=== PATIENT | female | born 1960 | race African-American/Black ===

== ENCOUNTER 2016-04-30 16:13 | Emergency (ER) | payer OTHER ==
[2016-04-30 16:24] VITALS: BMI 27.4
--- NOTE | 2016-04-30 17:28 | PDOC ---
History of Present Illness <Jacobo Rodríguez - Last Filed: 04/30/16 20:54> - History of Present Illness Initial Comments: 04/30/16 17:57 Patient is a 55 year old female with significant medical hx of diabetes and diverticulitis who is presenting to the ED with constant, progressive posterior left lower extremity pain and swelling for two weeks. The patient complains of posterior left leg pain with radiation from her left calf up to her left buttock and over to her right buttock. The patients pain alleviates with elevation of the leg and worsens when sitting and standing. Patient denies shortness of breath, chest pain, recent trauma, urinary or bowel incontinence, hx of blood clot, DVT or cancer. <Stacy Ling - Last Filed: 04/30/16 21:13> - General Chief Complaint: Edema Stated Complaint: PCP SENT/[facility] Time Seen by Provider: 04/30/16 17:28 Past History - Past Medical History Diabetes: Yes GI Disorders: Yes (diverticulitis) HTN: Yes Suicide Attempt (Hx): No - Surgical History Orthopedic Surgery: No - Immunization History Immunization Up to Date: Yes (NO FLU) - Psycho/Social/Smoking Cessation Hx Anxiety: No Suicidal Ideation: No Smoking History: Former smoker Have you smoked in the past 12 months: No Number of Cigarettes Smoked Daily: 0 Information on smoking cessation initiated: No Hx Alcohol Use: No Drug/Substance Use Hx: No <Jacobo Rodríguez - Last Filed: 04/30/16 20:54> <Stacy Ling - Last Filed: 04/30/16 21:13> - Past Medical History Allergies/Adverse Reactions: Allergies Allergy/AdvReac Type Severity Reaction Status Date / Time No Known Allergies Allergy Verified 04/30/16 16:21 Home Medications: Ambulatory Orders Calcium Carbonate/Vitamin D3 [Calcium 600+D Softgel] 1 each PO BID 03/27/14 Cyanocobalamin [Vitamin B12 -] 1,000 mcg PO DAILY 03/27/14 Ergocalciferol (Vitamin D2) [Vitamin D2] 2,000 unit PO DAILY 03/27/14 Lipase/Protease/Amylase [Creon Dr 36,000 Units Capsule] 1 each PO AC 03/27/14 Metformin HCl [Glucophage] 500 mg PO DAILY 03/27/14 Cyclobenzaprine HCl [Flexeril -] 10 mg PO TID PRN 06/13/16 Review of Systems - Review of Systems Comments:: 04/30/16 17:57 CONSTITUTIONAL: No fever, no chills, no fatigue EYES: No visual changes ENT: No ear pain, no sore throat CARDIOVASCULAR: No chest pain, no palpitations RESPIRATORY: No cough, no SOB GI: No abdominal pain, no nausea, no vomiting, no constipation, no diarrhea GENITOURINARY: No dysuria, no frequency, no hematuria MUSKULOSKELETAL: Left lower extremity pain and swelling. No backpain, no joint pain SKIN: No rash NEURO: No headache <Stacy Ling - Last Filed: 04/30/16 21:13> *Physical Exam - Vital Signs Last Vital Signs Temp Pulse Resp BP Pulse Ox 98.2 F 84 20 154/107 97 04/30/16 16:21 04/30/16 16:21 04/30/16 16:21 04/30/16 16:21 04/30/16 16:21 - Physical Exam Comments: EXTR: No obvious deformity; both lower extremities are warm to touch; minimal pitting edema to the left pretibial area is noted; full range of motion at the left hip/knee/ankle with minimal buttock discomfort on hip hyperextension; there is no compartment tenderness to palpation; dorsalis pedis and tibialis posterior +2 bilaterally; varicosities are noted bilaterally. <Jacobo Rodríguez - Last Filed: 04/30/16 20:54> - Vital Signs Last Vital Signs Temp Pulse Resp BP Pulse Ox 98.2 F 84 20 154/107 97 04/30/16 16:21 04/30/16 16:21 04/30/16 16:21 04/30/16 16:21 04/30/16 16:21 - Physical Exam Comments: 04/30/16 19:02 CONSTITUTIONAL: Well-appearing; well-nourished; in no apparent distress HEAD: Normocephalic; atraumatic EYES: PERRL; EOM intact ENMT: External appears normal; normal oropharynx NECK: Supple; non-tender; no cervical lymphadenopathy CARD: Normal S1, S2; no murmurs, rubs, or gallops RESP: Normal chest excursion with respiration; breath sounds clear and equal bilaterally; no wheezes, rhonchi, or rales ABD: Soft, non-distended; non-tender; no palpable organomegaly, no palpable hernias EXT: Normal ROM in all four extremities; non-tender to palpation; distal pulses intact SKIN: Warm, dry, no rash NEURO: No focal neurological deficiencies. <Stacy Ling - Last Filed: 04/30/16 21:13> ED Treatment Course - RADIOLOGY Radiograph Interpretation: 04/30/16 20:28 Hip/Pelvis X-Ray Impression: Unremarkable examination. Correlate clinically for further evaluation. Reported By: Alyssa Harris MD 04/30/16 21:12 Vascular Study Impression: There is no evidence of deep venous thrombosis in the left lower extremity. Reported By: Alyssa Harris MD <Stacy Ling - Last Filed: 04/30/16 21:13> Medical Decision Making - Medical Decision Making 04/30/16 19:38 Patient is a well-appearing 55 year old female who presents with atraumatic left lower extremity pain and swelling. Differential diagnoses includes DVT versus osteoarthritis versus hip bursitis versus hamstring tendinitis. Will obtain hip/pelvic x-ray to rule out pathological fracture. Will rule out DVT with Doppler ultrasound. Will reassess. 04/30/16 20:54 Patient reassessed. Patient is resting comfortably. left lower extremity Doppler ultrasound shows no evidence of DVT. Patient is safe for discharge with outpatient follow-up. <Jacobo Rodríguez - Last Filed: 04/30/16 20:54> *DC/Admit/Observation/Transfer - Attestations Physician Attestion: 04/30/16 19:10 The documentation was prepared by the scribe under my direct supervision. I have reviewed the documentation which correctly represents the findings, medical decision-making and critical action taken by me. <Jacobo Rodríguez - Last Filed: 04/30/16 20:54> - Attestations Scribe Attestion: 04/30/16 17:58 Documentation prepared by Stacy Ling, acting as medical physiologist for Jacobo Rodríguez MD. <Stacy Ling - Last Filed: 04/30/16 21:13> Diagnosis at time of Disposition: Leg pain, left - Discharge Dispostion Disposition: HOME Condition at time of disposition: Stable - Referrals Referrals: Brianne,Yoel, MD [Primary Care Provider] - - Patient Instructions Printed Discharge Instructions: DI for Leg Pain
[2016-04-30] MEDS ORDERED: ACETAMINOPHEN 500 MG TABLET (FP) PO ONE (17:58)
[2016-04-30] MEDS ORDERED: ACETAMINOPHEN 325 MG TABLET (FP) ONE (18:20)
[2016-04-30 21:04] VITALS: BP 142/90; PULSE 80; TEMP 97.6
== END 2016-04-30 21:11 | disposition home or self-care (01) ==
LOC: JER 16:13
DX: M79.605 Pain in left leg (principal); E11.9 Type 2 diabetes mellitus without complications; Z79.84 Long term (current) use of oral hypoglycemic drugs
CPT/HCPCS: 73523-TC; 93971-TC; 99282-25

== ENCOUNTER 2017-02-10 19:08 | Inpatient (IN) | payer OTHER ==
--- NOTE | 2017-02-10 21:16 | PDOC ---
History of Present Illness - General History Source: Patient Exam Limitations: No Limitations - History of Present Illness Initial Comments: 02/10/17 21:55 The patient is a 56 year old female, with a significant past medical history of DM, HTN, Diverticulitis who presents to the emergency department with LLQ abdominal pain and fever. Patient reports LLQ abdominal pain that began yesterday which she describes as constant, radiating to her back, 10/10 in severity with associated nausea, constipation and fever (Tmax 100.4). Patient states her pain has progressively worsened today and presents to the ED for further evaluation. She denies chest pain, headache or dizziness. She denies fever, chills, abdominal pain, nausea, vomit, diarrhea or constipation. She denies dysuria, frequency, urgency or hematuria. Patient denies sick contacts or recent travel. Allergies: NKA Past surgical history: None Social history: Occasional EtOH use PCP: Dr. Decker <Dhara Strauss - Last Filed: 02/10/17 22:29> <Jacobo Rodríguez - Last Filed: 02/11/17 01:15> - General Chief Complaint: Pain Stated Complaint: STOMACH PAIN Time Seen by Provider: 02/10/17 21:00 Past History <Dhara Strauss - Last Filed: 02/10/17 22:29> - Past Medical History COPD: No Diabetes: Yes GI Disorders: Yes (diverticulitis) HTN: Yes - Surgical History Orthopedic Surgery: No - Immunization History Immunization Up to Date: Yes (NO FLU) - Suicide/Smoking/Psychosocial Hx Smoking History: Former smoker Have you smoked in the past 12 months: No Number of Cigarettes Smoked Daily: 0 Information on smoking cessation initiated: No Hx Alcohol Use: No Drug/Substance Use Hx: No Substance Use Type: None <Jacobo Rodríguez - Last Filed: 02/11/17 01:15> - Past Medical History Allergies/Adverse Reactions: Allergies Allergy/AdvReac Type Severity Reaction Status Date / Time No Known Allergies Allergy Verified 04/30/16 16:21 Home Medications: Ambulatory Orders Calcium Carbonate/Vitamin D3 [Calcium 600+D Softgel] 1 each PO BID 03/27/14 Cyanocobalamin [Vitamin B12 -] 1,000 mcg PO DAILY 03/27/14 Ergocalciferol (Vitamin D2) [Vitamin D2] 2,000 unit PO DAILY 03/27/14 Lipase/Protease/Amylase [Renata Starr 36,000 Units Capsule] 1 each PO AC 03/27/14 Metformin HCl [Glucophage] 750 mg PO DAILY 03/27/14 Review of Systems - Review of Systems Able to Perform ROS?: Yes Comments:: 02/10/17 21:55 CONSTITUTIONAL: No fever, no chills, no fatigue EYES: No visual changes ENT: No ear pain, no sore throat CARDIOVASCULAR: No chest pain, no palpitations RESPIRATORY: No cough, no SOB GI: + abdominal pain, nausea. No vomiting, no constipation, no diarrhea GENITOURINARY: No dysuria, no frequency, no hematuria MUSKULOSKELETAL: No back pain, no joint pain, no myalgias SKIN: No rash NEURO: No headache <Dhara Strauss - Last Filed: 02/10/17 22:29> *Physical Exam - Vital Signs Last Vital Signs Temp Pulse Resp BP Pulse Ox 98.4 F 128 H 20 144/100 99 02/10/17 19:19 02/10/17 19:19 02/10/17 19:19 02/10/17 19:19 02/10/17 19:19 - Physical Exam Comments: 02/10/17 21:55 CONSTITUTIONAL: Well-appearing; well-nourished; in no apparent distress HEAD: Normocephalic; atraumatic EYES: PERRL; EOM intact ENMT: External appears normal; normal oropharynx NECK: Supple; nontender; no cervical lymphadenopathy CARD: Normal S1, S2; no murmurs, rubs, or gallops RESP: Normal chest excursion with respiration; breath sounds clear and equal bilaterally; no wheezes, rhonchi, or rales ABD: +LLQ tenderness with voluntary guarding. + No rebound. Soft, non-distended ; non-tender; no palpable organomegaly, no palpable hernias EXT: Normal ROM in all four extremities; non-tender to palpation; distal pulses intact SKIN: Warm, dry, no rash NEURO: No focal neurological deficiencies. <Dhara Strauss - Last Filed: 02/10/17 22:29> - Vital Signs Last Vital Signs Temp Pulse Resp BP Pulse Ox 98.4 F 128 H 20 144/100 99 02/10/17 19:19 02/10/17 19:19 02/10/17 19:19 02/10/17 19:19 02/10/17 19:19 <Jacobo Rodríguez - Last Filed: 02/11/17 01:15> ED Treatment Course - LABORATORY CBC & Chemistry Diagram: 02/10/17 21:47 02/10/17 21:47 - Medications Given in the ED: ED Medications Discontinued Medications Generic Name Dose Route Start Last Admin Trade Name Pallavi PRN Reason Stop Dose Admin Morphine Sulfate 4 mg 02/10/17 21:24 02/10/17 21:48 Morphine Injection - IVPUSH 02/10/17 21:25 4 mg ONCE ONE Administration Ondansetron HCl 8 mg 02/10/17 21:24 02/10/17 21:48 Zofran Injection IVPB 02/10/17 21:25 8 mg ONCE ONE Administration <Dhara Strauss - Last Filed: 02/10/17 22:29> - LABORATORY CBC & Chemistry Diagram: 02/10/17 21:47 02/10/17 21:47 <Jacobo Rodríguez - Last Filed: 02/11/17 01:15> Medical Decision Making - Medical Decision Making 02/11/17 01:14 Patient is a 56-year-old female with history hypertension diabetes who presents to the ER with atraumatic left lower quadrant pain. CT that and pelvis reveals acute sigmoid diverticulitis. CBC reveals moderate leukocytosis. We'll administer IV Zosyn. Will admit for further evaluation and treatment. <Jacobo Rodríguez - Last Filed: 02/11/17 01:15> *DC/Admit/Observation/Transfer - Attestations Scribe Attestion: 02/10/17 21:55 Documentation prepared by Dhara Strauss, acting as medical records specialist for Jacobo Rodríguez, <Dhara Strauss - Last Filed: 02/10/17 22:29> - Discharge Dispostion Admit: Yes <aJcobo Rodríguez - Last Filed: 02/11/17 01:15> Diagnosis at time of Disposition: Acute diverticulitis - Discharge Dispostion Condition at time of disposition: Fair - Referrals Referrals: Yoel Decekr MD [Primary Care Provider] - - Patient Instructions - Post Discharge Activity
[2017-02-10] MEDS ORDERED: ONDANSETRON 4 MG/2 ML VIAL IVPB ONE (21:24)
[2017-02-10] MEDS ORDERED: SODIUM CHLORIDE 1,000 ML IV STA (21:24)
[2017-02-10] MEDS ORDERED: morphine CARPU-JECT 4 MG/1 ML DISP.SYRIN IVPUSH ONE ×2 (21:24→23:17)
[2017-02-10] MEDS ORDERED: morphine SULFATE 4 MG/ML VIAL ONE ×2 (21:28→23:19)
[2017-02-10] MEDS ORDERED: ONDANSETRON 4 MG/2 ML VIAL ONE (21:29)
[2017-02-10 22:07] LABS: BASOPHIL 0.3 % (0-2.0); EOSINOPHIL 0.3 % (0-4.5); MCH 28.3 pg (25.7-33.7); MCHC 32.9 g/dl (32.0-36.0); MEAN CELL VOLUME 85.9 fl (80-96); MEAN PLT VOLUME 8.3 fl (7.5-11.1); NEUTROPHILS 68.1 % (42.8-82.8); PLATELET COUNT 342 K/MM3 (134-434); RDW 14.3 % (11.6-15.6); WHITE BLOOD COUNT 14.7 K/mm3 (4.0-10.0)
[2017-02-10 22:21] LABS: INR 1.03 (0.82-1.09); PROTHROMBIN TIME (PATIENT) 11.6 SEC (9.98-11.88)
[2017-02-10 22:36] LABS: ALBUMIN 3.5 g/dl (3.4-5.0); ANION GAP 7 (8-16); CO2 28 mmol/L (21-32); CREATININE 0.8 mg/dL (0.55-1.02); GLUCOSE,RANDOM 96 mg/dL (74-106); SGOT/AST 10 U/L (15-37); SGPT/ALT 25 U/L (12-78)
[2017-02-10 22:38] LABS: ALK PHOS 101 U/L (45-117); BILIRUBIN,TOTAL 0.7 mg/dL (0.2-1.0); TOT PROT 7.5 g/dl (6.4-8.2)
[2017-02-10 23:22] LABS: URINE APPEARANCE CLEAR; URINE BILIRUBIN NEGATIVE (NEGATIVE); URINE BLOOD 1+ (NEGATIVE); URINE COLOR STRAW; URINE GLUCOSE (UA) NEGATIVE (NEGATIVE); URINE KETONE TRACE (NEGATIVE); URINE NITRITE NEGATIVE (NEGATIVE); URINE PROTEIN NEGATIVE (NEGATIVE); URINE UROBILINOGEN NEGATIVE mg/dL (0.2-1.0)
[2017-02-10 23:26] LABS: URINE BACTERIA RARE /hpf (NONE SEEN); URINE MUCUS RARE; URINE RBC 1; URINE WBC < 1
[2017-02-11] MEDS ORDERED: PIPERACIL/TAZOB 3.375 GM 3.375 GM/50 ML PREMIX IVPB ONE ×2 (01:10→03:45)
--- NOTE | 2017-02-11 01:43 | HP ---
CHIEF COMPLAINT: Left Lower Abdominal pain with Back pain PCP: Dr. Decker HISTORY OF PRESENT ILLNESS: This is a 56 y/o woman with a PMHx of Diverticulitis, HTN, DM. Who presents to the ED with pain to her LLQ, back pain, nausea x 1 day. Patient reports having a diverticulitis flare last month which resolved without hospitalization. Patient reports the pain as constant and sharp in quality. Patient reports having small hard stools several days ago, and now feels like she wants to pass "gas" but she can't. Patient denies fever, chills, cough, dizziness, SOB, CP, vomiting, diarrhea, dysuria. ER course was notable for: (1) CTAP- Acute Diverticulitis without perforation (2) WBC 14.7 (3) BP- 144/100~ 152/94 Recent Travel: None PAST MEDICAL HISTORY: See HPI PAST SURGICAL HISTORY: Social History: Smoking: Former Alcohol: None Drugs: None Lives with spouse Family History: Allergies No Known Allergies Allergy (Verified 04/30/16 16:21) HOME MEDICATIONS: Home Medications Medication Instructions Recorded Calcium Carbonate/Vitamin D3 1 each PO BID 03/27/14 [Calcium 600+D Softgel] Cyanocobalamin [Vitamin B12 -] 1,000 mcg PO DAILY 03/27/14 Ergocalciferol (Vitamin D2) 2,000 unit PO DAILY 03/27/14 [Vitamin D2] Lipase/Protease/Amylase [Creon Dr 1 each PO AC 03/27/14 36,000 Units Capsule] Metformin HCl [Glucophage] 750 mg PO DAILY 03/27/14 REVIEW OF SYSTEMS CONSTITUTIONAL: generalized weakness Absent: fever, chills, diaphoresis, malaise, loss of appetite, weight change HEENT: Absent: rhinorrhea, nasal congestion, throat pain, throat swelling, difficulty swallowing, mouth swelling, ear pain, eye pain, visual changes CARDIOVASCULAR: Absent: chest pain, syncope, palpitations, irregular heart rate, lightheadedness , peripheral edema RESPIRATORY: Absent: cough, shortness of breath, dyspnea with exertion, orthopnea, wheezing, stridor, hemoptysis GASTROINTESTINAL: abdominal pain, abdominal distension, nausea Absent: vomiting, diarrhea, constipation, melena, hematochezia GENITOURINARY: Absent: dysuria, frequency, urgency, hesitancy, hematuria, flank pain, genital pain MUSCULOSKELETAL: Absent: myalgia, arthralgia, joint swelling, back pain, neck pain SKIN: Absent: rash, itching, pallor HEMATOLOGIC/IMMUNOLOGIC: Absent: easy bleeding, easy bruising, lymphadenopathy, frequent infections ENDOCRINE: Absent: unexplained weight gain, unexplained weight loss, heat intolerance, cold intolerance NEUROLOGIC: Absent: headache, focal weakness or paresthesias, dizziness, unsteady gait, seizure, mental status changes, bladder or bowel incontinence PSYCHIATRIC: Absent: anxiety, depression, suicidal or homicidal ideation, hallucinations. PHYSICAL EXAMINATION Vital Signs - 24 hr 02/10/17 02/11/17 19:19 01:28 Temperature 98.4 F 98.4 F Pulse Rate 128 H Pulse Rate [ 96 H Radial] Respiratory 20 16 Rate Blood Pressure 144/100 Blood Pressure 152/94 [Left Arm] O2 Sat by Pulse 99 98 Oximetry (%) GENERAL: Awake, alert, and fully oriented, in mild distress. HEAD: Normal with no signs of trauma. EYES: Pupils equal, round and reactive to light, extraocular movements intact, sclera anicteric, conjunctiva clear. No lid lag. EARS, NOSE, THROAT: Ears normal, nares patent, oropharynx clear without exudates. Moist mucous membranes. NECK: Normal range of motion, supple without lymphadenopathy, JVD, or masses. LUNGS: Breath sounds equal, clear to auscultation bilaterally. No wheezes, and no crackles. No accessory muscle use. HEART: Regular rate and rhythm, normal S1 and S2 without murmur, rub or gallop. ABDOMEN: Soft, +tenderness to LMQ/LLQ, mildly distended, hyperactive bowel sounds, +guarding. No rebound, no masses. No hepatomegaly or splenomegaly. MUSCULOSKELETAL: Normal range of motion at all joints. No bony deformities or tenderness. No CVA tenderness. UPPER EXTREMITIES: 2+ pulses, warm, well-perfused. No cyanosis. No clubbing. No peripheral edema. LOWER EXTREMITIES: 2+ pulses, warm, well-perfused. No calf tenderness. No peripheral edema. NEUROLOGICAL: Cranial nerves II-XII intact. Normal speech. Gait not observed. PSYCHIATRIC: Cooperative. Good eye contact. Appropriate mood and affect. SKIN: Warm, dry, normal turgor, no rashes or lesions noted, normal capillary refill. Laboratory Results - last 24 hr 02/10/17 02/10/17 02/10/17 21:47 21:47 21:47 WBC 14.7 H D RBC 4.85 Hgb 13.7 Hct 41.7 MCV 85.9 MCH 28.3 MCHC 32.9 RDW 14.3 Plt Count 342 MPV 8.3 Neutrophils % 68.1 D Lymphocytes % 23.6 D Monocytes % 7.7 Eosinophils % 0.3 D Basophils % 0.3 PT with INR 11.60 INR 1.03 Sodium 137 Potassium 4.1 Chloride 102 Carbon Dioxide 28 Anion Gap 7 L BUN 12 D Creatinine 0.8 Creat Clearance w eGFR > 60 Random Glucose 96 Calcium 9.0 Total Bilirubin 0.7 D AST 10 L ALT 25 Alkaline Phosphatase 101 Total Protein 7.5 Albumin 3.5 Lipase 153 Urine Color Urine Appearance Urine pH Ur Specific [place] Urine Protein Urine Glucose (UA) Urine Ketones Urine Blood Urine Nitrite Urine Bilirubin Urine Urobilinogen Urine WBC (Auto) Urine RBC (Auto) Ur Epithelial Cells Urine Bacteria Urine Mucus 02/10/17 23:11 WBC RBC Hgb Hct MCV MCH MCHC RDW Plt Count MPV Neutrophils % Lymphocytes % Monocytes % Eosinophils % Basophils % PT with INR INR Sodium Potassium Chloride Carbon Dioxide Anion Gap BUN Creatinine Creat Clearance w eGFR Random Glucose Calcium Total Bilirubin AST ALT Alkaline Phosphatase Total Protein Albumin Lipase Urine Color Straw Urine Appearance Clear Urine pH 5.0 Ur Specific [place] 1.006 Urine Protein Negative Urine Glucose (UA) Negative Urine Ketones Trace H Urine Blood 1+ H Urine Nitrite Negative Urine Bilirubin Negative Urine Urobilinogen Negative Urine WBC (Auto) < 1 Urine RBC (Auto) 1 Ur Epithelial Cells Rare Urine Bacteria Rare Urine Mucus Rare ASSESSMENT/PLAN: This is a 56 y/o woman with a PMHx of Diverticulitis, HTN, DM. Admitted to [facility] for Acute Diverticulitis for further evaluation of their emergent condition. FEN - D51/2NS@75ml/hr - Replete lytes prn - NPO Code Status: Full Code Dispo: Requires Inpatient Care Problem List - Problem (1) Acute diverticulitis Assessment/Plan: -CTAP- reports Acute Diverticulitis proximal sigmoid without perforation - WBC 14.7 - Zosyn given in ED - Will start Ceftriaxone and Metronidazole in am - Appreciate Surgical Consult - Appreciate GI Consul - Will keep NPO for now, rest the bowel - Gentle IVF secondary to elevated BP - Morphine Sulfate prn - Zofran prn - Repeat CBC, BMP in am - Will add Lactic Acid Code(s): K57.92 - DVTRCLI OF INTEST, PART UNSP, W/O PERF OR ABSCESS W/O BLEED (2) Diabetes mellitus Assessment/Plan: - Controlled - BGMs - Hold Metformin secondary to Acute diverticulitis concern for Lactic Acidemia - Patient is currently NPO pending Surgical and GI consults - Consider ISS if diet is advanced to clears Code(s): E11.9 - TYPE 2 DIABETES MELLITUS WITHOUT COMPLICATIONS (3) HTN (hypertension) Assessment/Plan: -Not well controlled - Likely secondary to abdominal pain - Monitor BP - Continue Losartan - Consider adding thiazide to regimen for cardiovascular protection if BP continues to be elevated - Monitor renal function Code(s): I10 - ESSENTIAL (PRIMARY) HYPERTENSION (4) DVT prophylaxis Assessment/Plan: - OOB - SCDs - Heparin SQ Code(s): [id number] - Visit type - Emergency Visit Emergency Visit: Yes ED Registration Date: 02/10/17 Care time: The patient presented to the Emergency Department on the above date and was hospitalized for further evaluation of their emergent condition. - New Patient This patient is new to me today: Yes Date on this admission: 02/11/17 - Critical Care Critical Care patient: No
[2017-02-11 03:29] VITALS: BMI 27.7
[2017-02-11] MEDS: morphine SULFATE 4 MG/ML VIAL IVPUSH PRN ×2 (03:37→12:12)
[2017-02-11] MEDS: DEXTROSE 5%-0.45% SALINE 1,000 ML IV SCH ×2 (03:56→21:48)
[2017-02-11] MEDS ORDERED: PT OWN MED DRAWER 7, Y5N ONE (09:46)
[2017-02-11] MEDS ORDERED: CEFTRIAXONE 1 GM in DEXTROSE 5%-WATER - 100 ML IVPB SCH (10:00)
[2017-02-11] MEDS: HEPARIN NA (PORCINE) 5,000 UNITS/ML 1ML VIAL SQ SCH ×4 (10:12→21:48)
[2017-02-11] MEDS: CEFTRIAXONE 1 G/50 ML PREMIX 50 ML IVPB SCH (10:12)
[2017-02-11] MEDS: METRONIDAZOLE 500 MG PREMIXED 500 MG/100 ML MG IVPB SCH ×2 (10:12→17:43)
--- NOTE | 2017-02-11 11:01 | EKG ---
Test Reason : Blood Pressure : / mmHG Vent. Rate : 095 BPM Atrial Rate : 095 BPM P-R Int : 152 ms QRS Dur : 066 ms QT Int : 332 ms P-R-T Axes : 064 -02 039 degrees QTc Int : 417 ms NORMAL SINUS RHYTHM POSSIBLE LEFT ATRIAL ENLARGEMENT LEFT VENTRICULAR HYPERTROPHY ABNORMAL ECG WHEN COMPARED WITH ECG OF 28-MAR-2014 00:25, NO SIGNIFICANT CHANGE WAS FOUND Confirmed by FRANDY RAHMAN MD ([id number]) on 02/11/2017 11:00:37 AM Referred By: Confirmed By:FRANDY RAHMAN MD
--- NOTE | 2017-02-11 13:32 | PN ---
Progress Note, Physician Chief Complaint: Ms Gaines says she is still having abdominal pain. Also with migraine, has history of migraines. No cp, sob, n/v. - Current Medication List Current Medications: Active Medications Heparin Sodium (Porcine) (Heparin -) 5,000 unit SQ BID [facility] Last Admin: 02/11/17 10:42 Dose: Not Given Dextrose/Sodium Chloride (D5-1/2ns -) 1,000 mls @ 75 mls/hr IV ASDIR [facility] Last Admin: 02/11/17 03:56 Dose: 75 mls/hr Metronidazole (Flagyl 500mg Premixed Ivpb -) 500 mg in 100 mls @ 100 mls/hr IVPB Q8H-IV [facility] Last Admin: 02/11/17 10:12 Dose: 100 mls/hr CEFTRIAXONE 1 G/50 ML PREMIX (Ceftriaxone 1 Gm-D5w Bag) 50 mls @ 100 mls/hr IVPB DAILY [facility] Last Admin: 02/11/17 10:12 Dose: 100 mls/hr Morphine Sulfate (Morphine Sulfate) 4 mg IVPUSH Q6H PRN PRN Reason: PAIN Last Admin: 02/11/17 12:12 Dose: 4 mg Ondansetron HCl (Zofran Injection) 4 mg IVPUSH Q6H PRN PRN Reason: NAUSEA - Objective Vital Signs: Vital Signs Temperature 37.0 C 02/11/17 09:00 Pulse Rate 96 H 02/11/17 09:00 Respiratory Rate 18 02/11/17 09:00 Blood Pressure 136/89 02/11/17 09:00 O2 Sat by Pulse Oximetry (%) 98 02/11/17 09:00 Constitutional: Yes: Well Nourished, No Distress, Calm Cardiovascular: Yes: Regular Rate and Rhythm. No: Gallop, Murmur, Rub Respiratory: Yes: Regular, CTA Bilaterally. No: Rales, Rhonchi, Wheezes Gastrointestinal: Yes: Normal Bowel Sounds, Soft, Tenderness. No: Distention Extremities: Yes: WNL Edema: No Labs: CBC, BMP 02/10/17 21:47 02/10/17 21:47 INR, PTT INR 1.03 (0.82-1.09) 02/10/17 21:47 Problem List - Problems (1) Acute diverticulitis Assessment/Plan: -patient presents with acute diverticulitis -continue npo -continue rocephin and flagyl -GI and surgery consulted Code(s): K57.92 - DVTRCLI OF INTEST, PART UNSP, W/O PERF OR ABSCESS W/O BLEED (2) Migraine Assessment/Plan: -will give dose of relpax, patient takes this at home -prn tylenol Code(s): G43.909 - MIGRAINE, UNSP, NOT INTRACTABLE, WITHOUT STATUS MIGRAINOSUS (3) Diabetes mellitus Assessment/Plan: -holding metformin while npo -continue IVF Code(s): E11.9 - TYPE 2 DIABETES MELLITUS WITHOUT COMPLICATIONS (4) HTN (hypertension) Assessment/Plan: -continue losartan -monitor Code(s): I10 - ESSENTIAL (PRIMARY) HYPERTENSION Qualifiers: Hypertension type: essential hypertension Qualified Code(s): I10 - Essential (primary) hypertension
[2017-02-11 14:03] LABS: URINE LEUK ESTERASE Negative (NEGATIVE)
[2017-02-11] MEDS ORDERED: ELETRIPTAN HYDROBROMIDE 40 MG TABLET PO ONE (14:13)
[2017-02-11] MEDS ORDERED: ACETAMINOPHEN 325 MG TABLET (FP) PO PRN (14:13)
--- NOTE | 2017-02-11 16:52 | PN ---
Progress Note (short form) - Note Progress Note: surgery pt seen and examined. full consult dictated. 56f with multiple previous bouts of diverticulitis non confirmed and treated at home off abx, presents with llq pain, leukocytosis, and ct evidence of non complicated sigmoid diverticulitis. Last colonoscopy within the year. Pt admitted with rocephin/flagyl and feels well. ON exam abd is soft, with localized llq tenderness and rebound. Plan- uncomplicated diverticulitis. agree with admission and abx. keep npo until tenderness resolves. If patient decompensates and fails medical management will need laparotomy, partial colectomy, and colostomy. Since this is her first hospitalization for diverticulitis would not favor elective resection. Pt is non toxic and no indication for acute surgical intervention.
--- NOTE | 2017-02-11 17:30 | CONS ---
DATE OF CONSULTATION: 02/11/2017 REASON FOR CONSULTATION: Acute diverticulitis. This is an emergency room consultation at the request of the emergency room physician. The patient was subsequently admitted to the hospital floor, and patient is being seen and examined as an inpatient. BRIEF HISTORY: This is a 56-year-old female who says that she has had more than 10 episodes of diverticulitis, although she has always treated herself at home and without antibiotics. She has never had confirmation by CAT scan of her episodes. She states that 1 day ago she developed severe left lower quadrant pain with nausea, and because of this, she came to the hospital where a CAT scan was consistent with acute uncomplicated sigmoid diverticulitis. Her white blood cell count was elevated at 14, and she was admitted to the hospital and placed on Rocephin and Flagyl antibiotic. Overnight, she feels better but still has some pain. Her white blood cell count was noted to be 14 on admission. She has remained afebrile. PAST MEDICAL HISTORY: Significant for diverticulitis per the patient, hypertension, and diabetes. PAST SURGICAL HISTORY: Significant only for a laparoscopic tubal ligation. SOCIAL HISTORY: Significant for quitting tobacco. Negative for alcohol. ALLERGIES: She has no known drug allergies. HOME MEDICATIONS: Include metformin. Her last colonoscopy was this year, and she states it was unremarkable. FAMILY HISTORY: Noncontributory. REVIEW OF SYSTEMS: General: Denies fatigue or malaise. Cardiac: Denies chest pain or palpitations. Respiratory: No shortness of breath or wheeze. Gastrointestinal: As in HPI. Denies vomiting. Denies diarrhea. Denies blood in her stool. Does admit to recent constipation. Denies recent weight loss. Genitourinary: Denies dysuria. Musculoskeletal: Denies joint pain and joint swelling. Psychiatric: Denies anxiety, depression, or hearing voices. PHYSICAL EXAMINATION: General: This is a well-developed, well-nourished, 56-year-old female in no distress. Vital Signs: She is afebrile. Her vital signs are stable. HEENT: Her head is normocephalic. Her sclerae are anicteric. Neck: Supple. Chest: Clear. Abdomen: Soft. It is nondistended. She has significant left lower quadrant tenderness with rebound. Extremities: Trace edema. LABORATORY DATA: On review of her laboratory, white blood cell count is elevated at 14.7. Her CAT scan shows a thickened inflamed segment of sigmoid colon without noted perforation or abscess. ASSESSMENT: A 56-year-old female with left lower quadrant pain, left lower quadrant tenderness, rebound, leukocytosis, heart rate of 96. Clinically, this is acute uncomplicated diverticulitis with sepsis. She meets sepsis criteria based on white blood cell count elevation, heart rate greater than 90, and a suspected source of infection, being her infected sigmoid colon. At this point, she appears to be responding well to intravenous antibiotics. She states her pain is better, and she has had no fever. If the patient fails medical management which would be demonstrated by deterioration in her condition, spread of her pain, fever, or rising white blood cell count, she would require a laparotomy, sigmoid colectomy with colostomy. She is not interested in surgery unless it is emergent and life-saving. Since the patient has only had 1 confirmed case of diverticulitis that has required hospitalization, I would not favor elective surgical resection in the future until she has either a complicated attack or lifestyle being affected by multiple recurrences. Patient currently is nontoxic and does not need to go for urgent surgical exploration, and statistically, she should be successful with medical management alone. Recommend that she be kept n.p.o. until her tenderness in the left lower quadrant resolves. DO TAVON HALL/[id number]
--- NOTE | 2017-02-11 19:31 | CON.GI ---
Consult Consult Specialty:: GI Referred by:: Dr Hong Reason for Consultation:: abdominal pain - History of Present Illness Chief Complaint: abdominal pain History of Present Illness: 56 F, well-known to myself, with h/o DM, HTN, hospitalized for diverticulitis "years ago" and treated with po antibiotics more recently now admitted with same. She had LLQ pain for 24 hours with associated fever. She states the pain radiated to her back and was severe. She had a CT that showed uncomplicated diverticulitis with no free air and no abscess formation. I performed her colonoscopy a few months ago which was normal other than severe diverticulosis in the L colon. - History Source History Provided By: Patient Limitations to Obtaining History: No Limitations - Past Medical History ...: No - Alcohol/Substance Use Hx Alcohol Use: No - Smoking History Smoking history: Former smoker Have you smoked in the past 12 months: No Aproximately how many cigarettes per day: 0 If you are a former smoker, when did you quit?: 03/08/13 Home Medications - Allergies Allergies/Adverse Reactions: Allergies Allergy/AdvReac Type Severity Reaction Status Date / Time No Known Allergies Allergy Verified 04/30/16 16:21 - Home Medications Home Medications: Ambulatory Orders Calcium Carbonate/Vitamin D3 [Calcium 600+D Softgel] 1 each PO BID 03/27/14 Cyanocobalamin [Vitamin B12 -] 1,000 mcg PO DAILY 03/27/14 Ergocalciferol (Vitamin D2) [Vitamin D2] 2,000 unit PO DAILY 03/27/14 Lipase/Protease/Amylase [Creon Dr 36,000 Units Capsule] 1 each PO AC 03/27/14 Metformin HCl [Glucophage] 750 mg PO DAILY 03/27/14 Losartan Potassium 50 mg PO DAILY 02/11/17 Physical Exam-GI Vital Signs: Vital Signs Temperature 98.7 F 02/11/17 17:03 Pulse Rate 96 H 02/11/17 17:03 Respiratory Rate 18 02/11/17 17:03 Blood Pressure 136/77 02/11/17 17:03 O2 Sat by Pulse Oximetry (%) 98 02/11/17 09:00 Constitutional: Yes: Well Nourished, Mild Distress Neck: Yes: Supple Cardiovascular: Yes: Regular Rate and Rhythm Respiratory: Yes: CTA Bilaterally Gastrointestinal Inspection: Yes: WNL ...Auscultate: Yes: Hypoactive Bowel Sounds ...Palpate: Yes: Soft, Tenderness (LLQ primarily with local rebound) Labs: CBC, BMP 02/10/17 21:47 02/10/17 21:47 INR, PTT INR 1.03 (0.82-1.09) 02/10/17 21:47 Hepatic Panel Total Bilirubin 0.7 mg/dL (0.2-1.0) D 02/10/17 21:47 AST 10 U/L (15-37) L 02/10/17 21:47 ALT 25 U/L (12-78) 02/10/17 21:47 Alkaline Phosphatase 101 U/L (45-117) 02/10/17 21:47 Albumin 3.5 g/dl (3.4-5.0) 02/10/17 21:47 Imaging - Results Cat Scan: Report Reviewed (as above) Assessment/Plan Patient with above history admitted with recurrent diverticulitis. On appropriate AbRx As she has been hospitalized twice for this problem and treated as an opt for same, surgery should be considered once she recuperates as earlier surgical management is now recommended to avoid more complicated surgery later.
[2017-02-11] MEDS: ONDANSETRON 4 MG/2 ML VIAL IVPUSH PRN (20:21)
[2017-02-12] MEDS: METRONIDAZOLE 500 MG PREMIXED 500 MG/100 ML MG IVPB SCH ×3 (01:28→18:10)
[2017-02-12] MEDS: DEXTROSE 5%-0.45% SALINE 1,000 ML IV SCH ×2 (02:03→18:09)
[2017-02-12] MEDS: morphine SULFATE 4 MG/ML VIAL IVPUSH PRN (05:41)
[2017-02-12 08:06] LABS: BASOPHIL 0.3 % (0-2.0); EOSINOPHIL 1.8 % (0-4.5); MCH 28.5 pg (25.7-33.7); MCHC 32.9 g/dl (32.0-36.0); MEAN CELL VOLUME 86.6 fl (80-96); MEAN PLT VOLUME 8.4 fl (7.5-11.1); NEUTROPHILS 68.6 % (42.8-82.8); PLATELET COUNT 316 K/MM3 (134-434); RDW 13.9 % (11.6-15.6); WHITE BLOOD COUNT 10.7 K/mm3 (4.0-10.0)
[2017-02-12 08:39] LABS: ANION GAP 9 (8-16); CALCIUM 8.3 mg/dL (8.5-10.1); CO2 25 mmol/L (21-32); CREATININE 0.6 mg/dL (0.55-1.02); GLUCOSE,RANDOM 106 mg/dL (74-106); MAGNESIUM 2.2 mg/dL (1.8-2.4); PHOSPHOROUS 2.8 mg/dL (2.5-4.9)
[2017-02-12] MEDS: ONDANSETRON 4 MG/2 ML VIAL IVPUSH PRN (09:50)
[2017-02-12] MEDS: CEFTRIAXONE 1 G/50 ML PREMIX 50 ML IVPB SCH (09:53)
[2017-02-12] MEDS: HEPARIN NA (PORCINE) 5,000 UNITS/ML 1ML VIAL SQ SCH ×2 (09:53→22:39)
[2017-02-12] MEDS ORDERED: PROMETHAZINE HCL 25 MG/1 ML VIAL IVPUSH PRN (11:39)
[2017-02-12] MEDS ORDERED: ACETAMINOPHEN 1000 MG/100 ML VIAL (NON FORMULARY) IVPB ONE (12:30)
[2017-02-12] MEDS: LOSARTAN POTASSIUM 50 MG TABLET (FP) PO SCH (12:50)
--- NOTE | 2017-02-12 13:19 | PN ---
Progress Note (short form) - Note Progress Note: surgery pt seen and examined. main complaint is headache. wbc 10 afebrile abd-soft, much improved llq tenderenss Plan- cont npo until tenderness resolves. cont iv abx. Pt original history was incorrect and she did not remember that this is her second hospitalization and was once treated at home. Can consider elective sigmoid colectomy to prevent future recurrence after six weeks if medical management successful.
--- NOTE | 2017-02-12 14:53 | PN ---
Progress Note, Physician Chief Complaint: Ms Gaines says her abdominal pain is better today. However she says her migraine is worse and not under control. Having nausea secondary to the migraine. No cp or sob. - Current Medication List Current Medications: Active Medications Acetaminophen (Tylenol -) 650 mg PO Q4H PRN PRN Reason: FEVER OR PAIN Heparin Sodium (Porcine) (Heparin -) 5,000 unit SQ BID [facility] Last Admin: 02/12/17 09:53 Dose: Not Given Dextrose/Sodium Chloride (D5-1/2ns -) 1,000 mls @ 75 mls/hr IV ASDIR [facility] Last Admin: 02/12/17 02:03 Dose: Not Given Metronidazole (Flagyl 500mg Premixed Ivpb -) 500 mg in 100 mls @ 100 mls/hr IVPB Q8H-IV [facility] Last Admin: 02/12/17 09:53 Dose: 100 mls/hr CEFTRIAXONE 1 G/50 ML PREMIX (Ceftriaxone 1 Gm-D5w Bag) 50 mls @ 100 mls/hr IVPB DAILY [facility] Last Admin: 02/12/17 09:53 Dose: 100 mls/hr Losartan Potassium (Cozaar -) 50 mg PO DAILY [facility] Last Admin: 02/12/17 12:50 Dose: 50 mg Morphine Sulfate (Morphine Sulfate) 4 mg IVPUSH Q6H PRN PRN Reason: PAIN Last Admin: 02/12/17 05:41 Dose: 4 mg Ondansetron HCl (Zofran Injection) 4 mg IVPUSH Q6H PRN PRN Reason: NAUSEA Last Admin: 02/12/17 09:50 Dose: 4 mg Promethazine HCl (Phenergan Injection -) 12.5 mg IVPUSH Q6H PRN PRN Reason: NAUSEA AND/OR VOMITING - Objective Vital Signs: Vital Signs Temperature 36.9 C 02/12/17 10:26 Pulse Rate 89 02/12/17 10:26 Respiratory Rate 18 02/12/17 10:26 Blood Pressure 128/78 02/12/17 10:26 O2 Sat by Pulse Oximetry (%) 98 02/11/17 20:34 Constitutional: Yes: Well Nourished, No Distress, Calm Cardiovascular: Yes: Regular Rate and Rhythm. No: Gallop, Murmur, Rub Respiratory: Yes: Regular, CTA Bilaterally. No: Rales, Rhonchi, Wheezes Gastrointestinal: Yes: Normal Bowel Sounds, Soft, Tenderness (improved, LLQ). No: Distention Extremities: Yes: WNL Edema: No Labs: CBC, BMP 02/12/17 06:00 02/12/17 06:00 INR, PTT INR 1.03 (0.82-1.09) 02/10/17 21:47 Problem List - Problems (1) Acute diverticulitis Code(s): K57.92 - DVTRCLI OF INTEST, PART UNSP, W/O PERF OR ABSCESS W/O BLEED (2) Migraine Code(s): G43.909 - MIGRAINE, UNSP, NOT INTRACTABLE, WITHOUT STATUS MIGRAINOSUS (3) Diabetes mellitus Code(s): E11.9 - TYPE 2 DIABETES MELLITUS WITHOUT COMPLICATIONS (4) HTN (hypertension) Code(s): I10 - ESSENTIAL (PRIMARY) HYPERTENSION Qualifiers: Hypertension type: essential hypertension Qualified Code(s): I10 - Essential (primary) hypertension Assessment/Plan (1) Acute diverticulitis Assessment/Plan: -appreciate GI and surgery evaluations -continue npo -continue rocephin and flagyl -possible elective sigmoid colectomy 6 weeks after resolution Code(s): K57.92 - DVTRCLI OF INTEST, PART UNSP, W/O PERF OR ABSCESS W/O BLEED (2) Migraine Assessment/Plan: -patient still with migraines and feel it is worsening -possible refractory to morphine -give dose IV tylenol x1 -neurology consult Code(s): G43.909 - MIGRAINE, UNSP, NOT INTRACTABLE, WITHOUT STATUS MIGRAINOSUS (3) Diabetes mellitus Assessment/Plan: -holding metformin while npo -continue IVF Code(s): E11.9 - TYPE 2 DIABETES MELLITUS WITHOUT COMPLICATIONS (4) HTN (hypertension) Assessment/Plan: -continue losartan -monitor Code(s): I10 - ESSENTIAL (PRIMARY) HYPERTENSION Qualifiers: Hypertension type: essential hypertension Qualified Code(s): I10 - Essential (primary) hypertension
[2017-02-12] MEDS ORDERED: ACETAMINOPHEN/CAFFEINE/BUTALBITAL 1 TAB PO PRN (17:06)
--- NOTE | 2017-02-12 17:06 | CONSULT ---
Consult - text type - Consultation Consultation Note: Neurology History of Present Illness The patient is a 56 year old female, with a significant past medical history of DM, HTN, Diverticulitis who presented to the emergency department with LLQ abdominal pain and fever. LLQ abdominal pain which she described as constant, radiating to her back, 10/10 in severity with associated nausea, constipation and fever (Tmax 100.4). Patient states her pain has progressively worsened and presented to the ED for further evaluation. She was admitted for acute diverticulitis and has been getting IV abx as well as GI consult. Neurologically , she complains of ongoing holocephalic headache that has been presistent. I ordered CT head which did not show acute changes. She does also have underlying HTN and has been getting anti-HTN medication. Likely with tension type headaches possible 2/2 poor PO intake from diverticulitis vs acute migraine which does report to having in the past and has been on Relpax 40mg as outpatient. - Past Medical History COPD: No Diabetes: Yes GI Disorders: Yes (diverticulitis) HTN: Yes - Surgical History Orthopedic Surgery: No - Immunization History Immunization Up to Date: Yes (NO FLU) - Suicide/Smoking/Psychosocial Hx Smoking History: Former smoker Have you smoked in the past 12 months: No Number of Cigarettes Smoked Daily: 0 Information on smoking cessation initiated: No Hx Alcohol Use: No Drug/Substance Use Hx: No Substance Use Type: None - Past Medical History Allergies/Adverse Reactions: Allergies Allergy/AdvReac Type Severity Reaction Status Date / Time No Known Allergies Allergy Verified 04/30/16 16:21 Home Medications: Ambulatory Orders Calcium Carbonate/Vitamin D3 [Calcium 600+D Softgel] 1 each PO BID 03/27/14 Cyanocobalamin [Vitamin B12 -] 1,000 mcg PO DAILY 03/27/14 Ergocalciferol (Vitamin D2) [Vitamin D2] 2,000 unit PO DAILY 03/27/14 Lipase/Protease/Amylase [Creon Dr 36,000 Units Capsule] 1 each PO AC 03/27/14 Metformin HCl [Glucophage] 750 mg PO DAILY 03/27/14 Review of Systems CONSTITUTIONAL: No fever, no chills, no fatigue EYES: No visual changes ENT: No ear pain, no sore throat CARDIOVASCULAR: No chest pain, no palpitations RESPIRATORY: No cough, no SOB GI: + abdominal pain, nausea. No vomiting, no constipation, no diarrhea GENITOURINARY: No dysuria, no frequency, no hematuria MUSKULOSKELETAL: No back pain, no joint pain, no myalgias SKIN: No rash NEURO: headache *Physical Exam Vital Signs Temperature 98.4 F 02/12/17 15:28 Pulse Rate 107 H 02/12/17 15:28 Respiratory Rate 18 02/12/17 15:28 Blood Pressure 154/80 02/12/17 15:28 O2 Sat by Pulse Oximetry (%) 98 02/11/17 20:34 CONSTITUTIONAL: Well-appearing; well-nourished; in no apparent distress HEAD: Normocephalic; atraumatic EYES: PERRL; EOM intact ENMT: External appears normal; normal oropharynx NECK: Supple; nontender; no cervical lymphadenopathy CARD: Normal S1, S2; no murmurs, rubs, or gallops RESP: Normal chest excursion with respiration; breath sounds clear and equal bilaterally; no wheezes, rhonchi, or rales ABD: +LLQ tenderness with voluntary guarding. + No rebound. Soft, non-distended ; non-tender; no palpable organomegaly, no palpable hernias EXT: Normal ROM in all four extremities; non-tender to palpation; distal pulses intact SKIN: Warm, dry, no rash NEURO: CN intact, sensory normal, strength symetric, No focal neurological deficiencies. CBCD WBC 10.7 K/mm3 (4.0-10.0) H 02/12/17 06:00 RBC 4.52 M/mm3 (3.60-5.2) 02/12/17 06:00 Hgb 12.9 GM/dL (10.7-15.3) 02/12/17 06:00 Hct 39.1 % (32.4-45.2) 02/12/17 06:00 MCV 86.6 fl (80-96) 02/12/17 06:00 MCHC 32.9 g/dl (32.0-36.0) 02/12/17 06:00 RDW 13.9 % (11.6-15.6) 02/12/17 06:00 Plt Count 316 K/MM3 (134-434) 02/12/17 06:00 MPV 8.4 fl (7.5-11.1) 02/12/17 06:00 CMP Sodium 140 mmol/L (136-145) 02/12/17 06:00 Potassium 3.9 mmol/L (3.5-5.1) 02/12/17 06:00 Chloride 106 mmol/L (98-107) 02/12/17 06:00 Carbon Dioxide 25 mmol/L (21-32) 02/12/17 06:00 Anion Gap 9 (8-16) 02/12/17 06:00 BUN 9 mg/dL (7-18) D 02/12/17 06:00 Creatinine 0.6 mg/dL (0.55-1.02) D 02/12/17 06:00 Creat Clearance w eGFR > 60 (>60) 02/10/17 21:47 Calcium 8.3 mg/dL (8.5-10.1) L 02/12/17 06:00 Total Bilirubin 0.7 mg/dL (0.2-1.0) D 02/10/17 21:47 AST 10 U/L (15-37) L 02/10/17 21:47 ALT 25 U/L (12-78) 02/10/17 21:47 Alkaline Phosphatase 101 U/L (45-117) 02/10/17 21:47 Total Protein 7.5 g/dl (6.4-8.2) 02/10/17 21:47 Albumin 3.5 g/dl (3.4-5.0) 02/10/17 21:47 CT head reviewed Medical Decision Making 56 year old female, with a significant past medical history of DM, HTN, Diverticulitis who presented to the emergency department with LLQ abdominal pain and fever. LLQ abdominal pain which she described as constant, radiating to her back, 10/10 in severity with associated nausea, constipation and fever ( Tmax 100.4). Patient states her pain has progressively worsened and presented to the ED for further evaluation. She was admitted for acute diverticulitis and has been getting IV abx as well as GI consult. Neurologically, she complains of ongoing holocephalic headache that has been presistent. CT head completed which did not show acute changes. Continue treatment of underlying HTN, maintain < 140/90. Likely with tension type headaches possible 2/2 poor PO intake from diverticulitis vs acute migraine Ordered Relpax 40mg one more dose for today Does have Tylenol ordered and can be given, would avoid more than 4 doses per day and to avoid rebound headache Fioricet can be used for acute headache as well, will order PRN, caution with excess acetaminophen Increased hydration and consumption as possible Continue Metformin for DM, tight glycemic control Cognitive rest, avoid screens and electronic use Will follow up
[2017-02-13] MEDS: METRONIDAZOLE 500 MG PREMIXED 500 MG/100 ML MG IVPB SCH ×3 (01:35→17:33)
[2017-02-13] MEDS: DEXTROSE 5%-0.45% SALINE 1,000 ML IV SCH ×2 (01:36→05:00)
[2017-02-13 07:52] LABS: BASOPHIL 0.5 % (0-2.0); EOSINOPHIL 1.7 % (0-4.5); MCH 28.4 pg (25.7-33.7); MCHC 32.7 g/dl (32.0-36.0); MEAN CELL VOLUME 86.8 fl (80-96); MEAN PLT VOLUME 8.1 fl (7.5-11.1); NEUTROPHILS 59.8 % (42.8-82.8); PLATELET COUNT 334 K/MM3 (134-434); RDW 13.9 % (11.6-15.6); WHITE BLOOD COUNT 7.5 K/mm3 (4.0-10.0)
[2017-02-13 08:09] LABS: ANION GAP 10 (8-16); CALCIUM 8.7 mg/dL (8.5-10.1); CO2 25 mmol/L (21-32); CREATININE 0.7 mg/dL (0.55-1.02); GLUCOSE,RANDOM 96 mg/dL (74-106); PHOSPHOROUS 2.6 mg/dL (2.5-4.9)
--- NOTE | 2017-02-13 09:37 | PN ---
Progress Note (short form) - Note Progress Note: surgery pt seen and examined. no more pain, positive bm afebrile abd-soft, nt Plan- full liquids, poss d/c tomorrow on low fiber diet for 1 week and po augmentin. can f/u to consider elective surgery
[2017-02-13] MEDS: CEFTRIAXONE 1 G/50 ML PREMIX 50 ML IVPB SCH (09:48)
[2017-02-13] MEDS: HEPARIN NA (PORCINE) 5,000 UNITS/ML 1ML VIAL SQ SCH ×2 (09:48→21:09)
[2017-02-13] MEDS: LOSARTAN POTASSIUM 50 MG TABLET (FP) PO SCH (09:48)
--- NOTE | 2017-02-13 11:32 | PN ---
Progress Note (short form) - Note Progress Note: Neurology History of Present Illness The patient is a 56 year old female, with a significant past medical history of DM, HTN, Diverticulitis who presented to the emergency department with LLQ abdominal pain and fever. LLQ abdominal pain which she described as constant, radiating to her back, 10/10 in severity with associated nausea, constipation and fever (Tmax 100.4). Patient states her pain has progressively worsened and presented to the ED for further evaluation. She was admitted for acute diverticulitis and has been getting IV abx as well as GI consult. Neurologically , she complained of ongoing holocephalic headache that had been presistent. I ordered CT head which did not show acute changes. She does also have underlying HTN and has been getting anti-HTN medication. Tension type headaches possible 2/ 2 poor PO intake from diverticulitis vs acute migraine which does report to having in the past and has been on Relpax 40mg as outpatient. I had prescribed Fioricet as needed which she reports has helped her significantly. She feels much better today. With slight headache but much less than yesterday. Also reports abdominal complaints improved as well. Is well appearing today. Active Medications Acetaminophen (Tylenol -) 650 mg PO Q4H PRN PRN Reason: FEVER OR PAIN Acetaminophen/Butalbital/Caffeine (Fioricet -) 1 tablet PO Q6H PRN PRN Reason: HEADACHE Last Admin: 02/12/17 18:25 Dose: 1 tablet Heparin Sodium (Porcine) (Heparin -) 5,000 unit SQ BID [facility] Last Admin: 02/13/17 09:48 Dose: Not Given Dextrose/Sodium Chloride (D5-1/2ns -) 1,000 mls @ 75 mls/hr IV ASDIR [facility] Last Admin: 02/13/17 05:00 Dose: 75 mls/hr Metronidazole (Flagyl 500mg Premixed Ivpb -) 500 mg in 100 mls @ 100 mls/hr IVPB Q8H-IV [facility] Last Admin: 02/13/17 09:48 Dose: 100 mls/hr CEFTRIAXONE 1 G/50 ML PREMIX (Ceftriaxone 1 Gm-D5w Bag) 50 mls @ 100 mls/hr IVPB DAILY [facility] Last Admin: 02/13/17 09:48 Dose: 100 mls/hr Losartan Potassium (Cozaar -) 50 mg PO DAILY [facility] Last Admin: 11/18/17 09:48 Dose: 50 mg Morphine Sulfate (Morphine Sulfate) 4 mg IVPUSH Q6H PRN PRN Reason: PAIN Last Admin: 02/12/17 05:41 Dose: 4 mg Ondansetron HCl (Zofran Injection) 4 mg IVPUSH Q6H PRN PRN Reason: NAUSEA Last Admin: 02/12/17 09:50 Dose: 4 mg Promethazine HCl (Phenergan Injection -) 12.5 mg IVPUSH Q6H PRN PRN Reason: NAUSEA AND/OR VOMITING *Physical Exam Vital Signs Temperature 98.3 F 02/13/17 07:00 Pulse Rate 82 02/13/17 07:00 Respiratory Rate 18 02/13/17 07:00 Blood Pressure 127/77 02/13/17 07:00 O2 Sat by Pulse Oximetry (%) 97 02/12/17 21:00 CONSTITUTIONAL: Well-appearing; well-nourished; in no apparent distress HEAD: Normocephalic; atraumatic EYES: PERRL; EOM intact ENMT: External appears normal; normal oropharynx NECK: Supple; nontender; no cervical lymphadenopathy CARD: Normal S1, S2; no murmurs, rubs, or gallops RESP: Normal chest excursion with respiration; breath sounds clear and equal bilaterally; no wheezes, rhonchi, or rales ABD: +LLQ tenderness with voluntary guarding. + No rebound. Soft, non-distended ; non-tender; no palpable organomegaly, no palpable hernias EXT: Normal ROM in all four extremities; non-tender to palpation; distal pulses intact SKIN: Warm, dry, no rash NEURO: CN intact, sensory normal, strength symetric, No focal neurological deficiencies. CBCD WBC 7.5 K/mm3 (4.0-10.0) 02/13/17 06:45 RBC 4.44 M/mm3 (3.60-5.2) 02/13/17 06:45 Hgb 12.6 GM/dL (10.7-15.3) 02/13/17 06:45 Hct 38.5 % (32.4-45.2) 02/13/17 06:45 MCV 86.8 fl (80-96) 02/13/17 06:45 MCHC 32.7 g/dl (32.0-36.0) 02/13/17 06:45 RDW 13.9 % (11.6-15.6) 02/13/17 06:45 Plt Count 334 K/MM3 (134-434) 02/13/17 06:45 MPV 8.1 fl (7.5-11.1) 02/13/17 06:45 CMP Sodium 140 mmol/L (136-145) 02/13/17 06:45 Potassium 4.0 mmol/L (3.5-5.1) 02/13/17 06:45 Chloride 105 mmol/L (98-107) 02/13/17 06:45 Carbon Dioxide 25 mmol/L (21-32) 02/13/17 06:45 Anion Gap 10 (8-16) 02/13/17 06:45 BUN 9 mg/dL (7-18) 02/13/17 06:45 Creatinine 0.7 mg/dL (0.55-1.02) 02/13/17 06:45 Creat Clearance w eGFR > 60 (>60) 02/10/17 21:47 Calcium 8.7 mg/dL (8.5-10.1) 02/13/17 06:45 Total Bilirubin 0.7 mg/dL (0.2-1.0) D 02/10/17 21:47 AST 10 U/L (15-37) L 02/10/17 21:47 ALT 25 U/L (12-78) 02/10/17 21:47 Alkaline Phosphatase 101 U/L (45-117) 02/10/17 21:47 Total Protein 7.5 g/dl (6.4-8.2) 02/10/17 21:47 Albumin 3.5 g/dl (3.4-5.0) 02/10/17 21:47 CT head reviewed Medical Decision Making 56 year old female, with a significant past medical history of DM, HTN, Diverticulitis who presented to the emergency department with LLQ abdominal pain and fever. LLQ abdominal pain which she described as constant, radiating to her back, 10/10 in severity with associated nausea, constipation and fever ( Tmax 100.4). Patient states her pain has progressively worsened and presented to the ED for further evaluation. She was admitted for acute diverticulitis and has been getting IV abx as well as GI consult. Neurologically, she complains of ongoing holocephalic headache that has been presistent. CT head completed which did not show acute changes. Continue treatment of underlying HTN, maintain < 140/90. Likely with tension type headaches possible 2/2 poor PO intake from diverticulitis vs acute migraine Does have Tylenol ordered and can be given, would avoid more than 4 doses per day and to avoid rebound headache Fioricet can be used for acute headache as well, ordered PRN, caution with excess acetaminophen Increased hydration and consumption as possible Continue Metformin for DM, tight glycemic control Cognitive rest, avoid screens and electronic use Much improved neurologically
--- NOTE | 2017-02-13 14:30 | PN ---
Progress Note, Physician Chief Complaint: Mild abd pain , no nausea or vomiting History of Present Illness: 56 yrs old F with H/O HTN, Migraine diverticulosis , T2DM, admitted with [facility] [place] with fever in the setting of acute diverticulitis. - Current Medication List Current Medications: Active Medications Acetaminophen (Tylenol -) 650 mg PO Q4H PRN PRN Reason: FEVER OR PAIN Acetaminophen/Butalbital/Caffeine (Fioricet -) 1 tablet PO Q6H PRN PRN Reason: HEADACHE Last Admin: 02/12/17 18:25 Dose: 1 tablet Heparin Sodium (Porcine) (Heparin -) 5,000 unit SQ BID MARTHA Last Admin: 02/13/17 09:48 Dose: Not Given Dextrose/Sodium Chloride (D5-1/2ns -) 1,000 mls @ 75 mls/hr IV ASDIR MARTHA Last Admin: 02/13/17 05:00 Dose: 75 mls/hr Metronidazole (Flagyl 500mg Premixed Ivpb -) 500 mg in 100 mls @ 100 mls/hr IVPB Q8H-IV MARTHA Last Admin: 02/13/17 09:48 Dose: 100 mls/hr CEFTRIAXONE 1 G/50 ML PREMIX (Ceftriaxone 1 Gm-D5w Bag) 50 mls @ 100 mls/hr IVPB DAILY [facility] Last Admin: 02/13/17 09:48 Dose: 100 mls/hr Losartan Potassium (Cozaar -) 50 mg PO DAILY [facility] Last Admin: 02/13/17 09:48 Dose: 50 mg Morphine Sulfate (Morphine Sulfate) 4 mg IVPUSH Q6H PRN PRN Reason: PAIN Last Admin: 02/12/17 05:41 Dose: 4 mg Ondansetron HCl (Zofran Injection) 4 mg IVPUSH Q6H PRN PRN Reason: NAUSEA Last Admin: 02/12/17 09:50 Dose: 4 mg Promethazine HCl (Phenergan Injection -) 12.5 mg IVPUSH Q6H PRN PRN Reason: NAUSEA AND/OR VOMITING - Objective Vital Signs: Vital Signs Temperature 98.2 F 02/13/17 10:00 Pulse Rate 88 02/13/17 10:00 Respiratory Rate 18 02/13/17 10:00 Blood Pressure 134/80 02/13/17 10:00 O2 Sat by Pulse Oximetry (%) 99 02/13/17 09:00 Middle aged F denies any complaints HEENT : Mm moist, No abnemia, PERRLA, EOMI NECK: No JVD No Bruit CHEST: CTA B/L CVS; S1S2 R no m/g/r ABD No distention, non tebnder Bs + EXT: No edema feet, no calf tenderness SOCIOLOGY INSTRUCTOR: AOX3 non focal Labs: CBC, BMP 02/13/17 06:45 02/13/17 06:45 INR, PTT INR 1.03 (0.82-1.09) 02/10/17 21:47 Problem List - Problems (1) Acute diverticulitis Assessment/Plan: ConT IV Ceftriaxone, falgyl and pain control Code(s): K57.92 - DVTRCLI OF INTEST, PART UNSP, W/O PERF OR ABSCESS W/O BLEED (2) Diabetes mellitus Code(s): E11.9 - TYPE 2 DIABETES MELLITUS WITHOUT COMPLICATIONS (3) HTN (hypertension) Code(s): I10 - ESSENTIAL (PRIMARY) HYPERTENSION Qualifiers: Hypertension type: essential hypertension Qualified Code(s): I10 - Essential (primary) hypertension (4) Migraine Code(s): G43.909 - MIGRAINE, UNSP, NOT INTRACTABLE, WITHOUT STATUS MIGRAINOSUS
--- NOTE | 2017-02-13 16:16 | PN ---
GI Progress Note Subjective: Much better Tolerating full liquid diet No pain - Objective Vital Signs: Vital Signs Temperature 97.9 F 02/13/17 15:31 Pulse Rate 106 H 02/13/17 15:31 Respiratory Rate 18 02/13/17 15:31 Blood Pressure 130/60 02/13/17 15:31 O2 Sat by Pulse Oximetry (%) 99 02/13/17 09:00 Constitutional: Well Nourished, No Distress Neck: Yes: Supple Cardiovascular: Yes: Regular Rate and Rhythm Respiratory: Yes: CTA Bilaterally Gastrointestinal Inspection: Yes: WNL ...Auscultate: Yes: Normoactive Bowel Sounds ...Palpate: Yes: Soft. No: Tenderness Labs: CBC, BMP 02/13/17 06:45 02/13/17 06:45 INR, PTT INR 1.03 (0.82-1.09) 02/10/17 21:47 Assessment/Plan Patient with above history admitted with recurrent diverticulitis. On appropriate AbRx with good response Agree with advancing diet For possible elective surgery after d/c when well
[2017-02-14] MEDS: METRONIDAZOLE 500 MG PREMIXED 500 MG/100 ML MG IVPB SCH ×2 (01:15→09:07)
[2017-02-14] MEDS: DEXTROSE 5%-0.45% SALINE 1,000 ML IV SCH (01:16)
[2017-02-14 08:19] LABS: ANION GAP 8 (8-16); CALCIUM 8.2 mg/dL (8.5-10.1); CO2 26 mmol/L (21-32); CREATININE 0.7 mg/dL (0.55-1.02); GLUCOSE,RANDOM 106 mg/dL (74-106)
[2017-02-14 08:31] LABS: BASOPHIL 0.6 % (0-2.0); EOSINOPHIL 2.3 % (0-4.5); MCH 28.2 pg (25.7-33.7); MCHC 32.7 g/dl (32.0-36.0); MEAN CELL VOLUME 86.4 fl (80-96); MEAN PLT VOLUME 8.2 fl (7.5-11.1); NEUTROPHILS 48.9 % (42.8-82.8); PLATELET COUNT 348 K/MM3 (134-434); RDW 13.8 % (11.6-15.6); WHITE BLOOD COUNT 6.7 K/mm3 (4.0-10.0)
--- NOTE | 2017-02-14 08:36 | PN ---
Progress Note (short form) - Note Progress Note: surgery pt remains well. consider discharge on augmentin and full liquid diet till wed.
[2017-02-14] MEDS: CEFTRIAXONE 1 G/50 ML PREMIX 50 ML IVPB SCH (09:04)
[2017-02-14] MEDS: LOSARTAN POTASSIUM 50 MG TABLET (FP) PO SCH (09:07)
[2017-02-14] MEDS: HEPARIN NA (PORCINE) 5,000 UNITS/ML 1ML VIAL SQ SCH (09:07)
--- NOTE | 2017-02-14 13:32 | PN ---
GI Progress Note Subjective: Patient seen walking in hallway No pain-only mild discomfort and gas/bloating Tolerating full liquid diet - Objective Vital Signs: Vital Signs Temperature 98.6 F 02/14/17 09:16 Pulse Rate 92 H 02/14/17 09:16 Respiratory Rate 18 02/14/17 09:16 Blood Pressure 139/92 02/14/17 09:16 O2 Sat by Pulse Oximetry (%) 98 02/14/17 09:00 Constitutional: Well Nourished, No Distress HENT: Yes: Normocephalic Neck: Yes: Supple Cardiovascular: Yes: Regular Rate and Rhythm Respiratory: Yes: CTA Bilaterally ...Auscultate: Yes: Normoactive Bowel Sounds ...Palpate: Yes: Soft. No: Tenderness ...Percussion: Yes: Dullness Labs: CBC, BMP 02/14/17 06:30 02/14/17 06:30 INR, PTT INR 1.03 (0.82-1.09) 02/10/17 21:47 Assessment/Plan Patient with above history admitted with recurrent diverticulitis. On appropriate AbRx with good response Currently afebrile and non-tender Agree with Dr Rodriguez's discharge plan Will f/u as outpatient
[2017-02-14] MEDS ORDERED: AMOX TR/POT CLAV 875MG/125MG TABLETS (FP) PO SCH (14:30)
--- NOTE | 2017-02-14 14:38 | DS ---
Physical Examination Vital Signs: Vital Signs Temperature 98.6 F 02/14/17 09:16 Pulse Rate 92 H 02/14/17 09:16 Respiratory Rate 18 02/14/17 09:16 Blood Pressure 139/92 02/14/17 09:16 O2 Sat by Pulse Oximetry (%) 98 02/14/17 09:00 Middle aged F denies any complaints HEENT : Mm moist, No abnemia, PERRLA, EOMI NECK: No JVD No Bruit CHEST: CTA B/L CVS; S1S2 R no m/g/r ABD No distention, non tebnder Bs + EXT: No edema feet, no calf tenderness [employer]: AOX3 non focal Findings/Remarks: CBC, BMP 02/14/17 06:30 02/14/17 06:30 CT: Left sided Diverticullitis no abscess formation Labs: CBC, BMP 02/14/17 06:30 02/14/17 06:30 Discharge Summary Reason For Visit: ACUTE DIVERTICULITIS OF INTESTINE Current Active Problems Acute diverticulitis (Acute) DVT prophylaxis (Acute) Diabetes mellitus (Acute) HTN (hypertension) (Acute) Migraine (Acute) Condition: Stable - Instructions Diet, Activity, Other Instructions: As advised Liquid Diet for 5 days Referrals: Yoel Decker MD [Primary Care Provider] - 1 Week Robin Sinha MD [Staff Physician] - Disposition: HOME - Home Medications Comprehensive Discharge Medication List: Ambulatory Orders Calcium Carbonate/Vitamin D3 [Calcium 600+D Softgel] 1 each PO BID 03/27/14 Cyanocobalamin [Vitamin B12 -] 1,000 mcg PO DAILY 03/27/14 Ergocalciferol (Vitamin D2) [Vitamin D2] 2,000 unit PO DAILY 03/27/14 Lipase/Protease/Amylase [Creon Dr 36,000 Units Capsule] 1 each PO AC 03/27/14 Metformin HCl [Glucophage] 750 mg PO DAILY 03/27/14 Losartan Potassium 50 mg PO DAILY 02/11/17 Acetaminophen/Caffeine/Butalb [Fioricet -] 1 tablet PO Q6H PRN #30 tablet MDD 4 02/14/17 Amox-Tr/K Cl [Augmentin 875-125mg Tablet -] 1 tab PO BID@0800,1730 7 Days #14 tablet 02/14/17
[2017-02-14 15:10] VITALS: BP 141/94; PULSE 85; TEMP 97.7
== END 2017-02-14 15:14 | disposition home or self-care (01) | DRG 244 ==
LOC: JER 19:08 → JERBED 02-11 01:15 → UNDOADMIN 02-11 01:25 → JERBED 02-11 01:25 → J8W 02-11 03:14
PROVIDERS: ADMIT Internal Medicine; ATTEND Internal Medicine
DX: K57.92 Diverticulitis of intestine, part unspecified, without perforation or abscess without bleeding (principal); E11.9 Type 2 diabetes mellitus without complications; I10 Essential (primary) hypertension; G43.909 Migraine, unspecified, not intractable, without status migrainosus; R10.32 Left lower quadrant pain
CPT/HCPCS: 36415; 70450-TC; 71010-TC; 74176-TC; 80048; 80053; 81003; 81015; 83690; 83735; 84100; 85025; 85610; 87086; 93005; 93010; 99282-25; J1644

== ENCOUNTER 2017-08-20 19:34 | Emergency (ER) | payer OTHER ==
--- NOTE | 2017-08-20 19:40 | PDOC ---
Rapid Medical Evaluation Time Seen by Provider: 08/20/17 19:36 Medical Evaluation: Allergies Allergy/AdvReac Type Severity Reaction Status Date / Time No Known Allergies Allergy Verified 04/30/16 16:21 08/20/17 19:37 I have performed a brief-in person evaluation of this patient. The patient presents with a chief complaint of: "I think a spider bit me in the car last night" causing circular 4cm erythema/pruritus to medial mid left humerus and prox left lat lower leg. Denies fever/chills "Itchy to left upper arm pain to left lower leg rash Pertinent physical exam findings: 4cm circular erythema to medial mid humerus/ 2cm circular erythema to prox left lat lower leg. Neg lymphangitis I have ordered the followin The patient will proceed to the ED for further evaluation. Discharge Disposition - Referrals Referrals: Yoel Decker MD [Primary Care Provider] - - Patient Instructions - Post Discharge Activity
[2017-08-20 19:41] VITALS: BP 157/85; TEMP 98.3; BMI 28.3
[2017-08-20] MEDS ORDERED: diphenhydrAMINE HCL 50 MG CAPSULE PO ONE (20:57)
[2017-08-20] MEDS ORDERED: diphenhydrAMINE HCL 25 MG CAPSULE (FP) PO ONE (21:01)
--- NOTE | 2017-08-20 21:03 | PDOC ---
History of Present Illness - General Chief Complaint: Rash Stated Complaint: RASH Time Seen by Provider: 08/20/17 19:36 History Source: Patient Exam Limitations: No Limitations - History of Present Illness Initial Comments: 08/20/17 21:03 This is a 57-year-old woman with past medical history of hypertension and diabetes presents emergency Department with multiple notable areas of erythema in a circular pattern. Patient states she was in her car last night and felt something bite her but is unsure what it was that bit her. Patient woke up this morning with 3 areas of circular erythema 1 to the left arm and two to the left lower leg. Patient reports erythematous areas are pruritic. Patient is applied mometasone steroid cream to affected areas with minimal relief of pruritus. She denies fevers, chills, shortness of breath, chest pain. Past History - Past Medical History Allergies/Adverse Reactions: Allergies Allergy/AdvReac Type Severity Reaction Status Date / Time No Known Allergies Allergy Verified 04/30/16 16:21 Home Medications: Ambulatory Orders Calcium Carbonate/Vitamin D3 [Calcium 600+D Softgel] 1 each PO BID 03/27/14 Cyanocobalamin [Vitamin B12 -] 1,000 mcg PO DAILY 03/27/14 Ergocalciferol (Vitamin D2) [Vitamin D2] 2,000 unit PO DAILY 03/27/14 Lipase/Protease/Amylase [Creon Dr 36,000 Units Capsule] 1 each PO AC 03/27/14 Metformin HCl [Glucophage] 750 mg PO DAILY 03/27/14 Losartan Potassium 50 mg PO DAILY 02/11/17 Acetaminophen/Caffeine/Butalb [Fioricet -] 1 tablet PO Q6H PRN #30 tablet MDD 4 02/14/17 Amox-Tr/K Cl [Augmentin 875-125mg Tablet -] 1 tab PO BID@0800,1730 7 Days #14 tablet 02/14/17 Cephalexin Monohydrate [Keflex -] 500 mg PO Q6H #28 capsule 08/20/17 Diphenhydramine HCl [Benadryl -] 25 mg PO Q6H #120 capsule 08/20/17 Anemia: No Asthma: No Cancer: No Cardiac Disorders: No CVA: No COPD: No CHF: No DVT: No Dementia: No Diabetes: Yes GI Disorders: Yes (diverticulitis) Disorders: No HTN: Yes Hypercholesterolemia: No Liver Disease: No Seizures: No Thyroid Disease: No - Surgical History Orthopedic Surgery: No - Immunization History Immunization Up to Date: Yes (NO FLU) - Suicide/Smoking/Psychosocial Hx Smoking History: Never smoked Have you smoked in the past 12 months: No Number of Cigarettes Smoked Daily: 0 If you are a former smoker, when did you quit?: 03/08/13 Cigars Per Day: 0 Information on smoking cessation initiated: No Hx Alcohol Use: No Drug/Substance Use Hx: No Substance Use Type: None Hx Substance Use Treatment: No Review of Systems - Review of Systems Able to Perform ROS?: Yes Is the patient limited Turkish proficient: No Constitutional: No: Symptoms Reported HEENTM: No: Symptoms Reported Respiratory: No: Symptoms reported Cardiac (ROS): No: Symptoms Reported ABD/GI: No: Symptoms Reported : No: Symptoms Reported Musculoskeletal: No: Symptoms Reported Integumentary: Yes: See HPI Neurological: No: Symptoms reported Endocrine: No: Symptoms Reported Hematologic/Lymphatic: No: Symptoms Reported *Physical Exam - Vital Signs Last Vital Signs Temp Pulse Resp BP Pulse Ox 98.3 F 20 157/85 98 08/20/17 19:37 08/20/17 19:37 08/20/17 19:37 08/20/17 19:37 - Physical Exam General Appearance: Yes: Appropriately Dressed. No: Apparent Distress HEENT: positive: Normal ENT Inspection Neck: positive: Trachea midline, Supple Respiratory/Chest: positive: Lungs Clear, Normal Breath Sounds. negative: Respiratory Distress, Accessory Muscle Use Integumentary: positive: Other (3 erythematous circular areas noted. Left lateral arm with a 4 cm circular area of erythema without induration or fluctuance. Left lateral lower leg with a 3 cm circular area of erythema without induration or fluctuance. 2 cm x 5 cm ovoid area of erythema in the left popliteal region without induration or fluctuance.) Medical Decision Making - Medical Decision Making 08/20/17 21:06 A/P: 57-year-old woman history of hypertension and diabetes with cellulitis 4 cm circular area of erythema noted to the left lateral mid humeral region. No induration or fluctuance present 3 cm circular area of erythema to the left lateral lower leg medially inferior to the knee. No induration or fluctuance present 3 cm x 5 cm ovoid area of erythema noted in the right popliteal region. Skin is tight without fluctuance present Given patient's comorbidities I will treat the patient for cellulitis with Keflex 500 mg 4 times a day for the next 7 days. Patient is instructed to take Benadryl to relieve itching and to apply mometasone cream to affected areas as needed. Patient verbalizes understanding of discharge instructions. *DC/Admit/Observation/Transfer Diagnosis at time of Disposition: Cellulitis Qualifiers: Site of cellulitis: extremity Site of cellulitis of extremity: lower extremity Laterality: right Qualified Code(s): L03.115 - Cellulitis of right lower limb - Discharge Dispostion Disposition: HOME Condition at time of disposition: Stable Decision to Admit order: No - Prescriptions Prescriptions: Cephalexin Monohydrate [Keflex -] 500 mg PO Q6H #28 capsule Diphenhydramine HCl [Benadryl -] 25 mg PO Q6H #120 capsule - Referrals Referrals: Yoel Decker MD [Primary Care Provider] - - Patient Instructions Additional Instructions: Take Keflex 500 mg 4 times a day for the next 7 days Finish all antibiotics even if you feel better. Apply warm compresses to affected areas as needed. Return to emergency department for any worsening pain, drainage, hearing loss, or any other concerns. Thank you very much for choosing us to provide your emergent health care needs. - Post Discharge Activity
== END 2017-08-20 21:05 | disposition home or self-care (01) ==
LOC: JERFT 19:34
DX: L03.115 Cellulitis of right lower limb (principal); I10 Essential (primary) hypertension; E11.9 Type 2 diabetes mellitus without complications; Z79.84 Long term (current) use of oral hypoglycemic drugs
CPT/HCPCS: 99281-25

== ENCOUNTER 2020-06-29 13:24 | Emergency (ER) | payer OTHER ==
[2020-06-29 13:52] VITALS: BMI 27.4
[2020-06-29] MEDS ORDERED: ACETAMINOPHEN 325 MG TABLET (FP) PO ONE (15:40)
[2020-06-29 15:50] LABS: BASO % 0.7 % (0-2.0); EOS % 0.7 % (0-4.5); HEMATOCRIT 44.6 % (32.4-45.2); HEMOGLOBIN 14.8 GM/dL (10.7-15.3); LYMPH % 39.9 % (8-40); MCH 29.1 pg (25.7-33.7); MCHC 33.2 g/dl (32.0-36.0); MEAN CELL VOLUME 87.7 fl (80-96); MEAN PLT VOLUME 8.7 fl (7.5-11.1); NEUT % 52.7 % (42.8-82.8); PLATELET COUNT 353 K/MM3 (134-434); RBC 5.09 M/mm3 (3.60-5.2); RDW 14.4 % (11.6-15.6); WHITE BLOOD COUNT 10.5 K/mm3 (4.0-10.0)
[2020-06-29 16:08] LABS: POTASSIUM 4.1 mmol/L (3.5-5.1)
[2020-06-29 16:09] LABS: ALBUMIN 3.9 g/dl (3.4-5.0); CALCIUM 9.7 mg/dL (8.5-10.1); MAGNESIUM 2.2 mg/dL (1.8-2.4)
[2020-06-29 16:10] LABS: BLOOD UREA NITROGEN 16.4 mg/dL (7-18)
[2020-06-29 16:13] LABS: CREATININE 0.8 mg/dL (0.55-1.3)
[2020-06-29 16:14] LABS: BILIRUBIN,TOTAL 0.3 mg/dL (0.2-1); TOT PROT 7.9 g/dl (6.4-8.2)
[2020-06-29] MEDS ORDERED: IBUPROFEN 600 MG TABLET (FP) PO ONE (17:09)
[2020-06-29 18:12] VITALS: BP 159/94; PULSE 71; TEMP 98.4
== END 2020-06-29 18:23 | disposition home or self-care (01) ==
LOC: JER 13:24
DX: R42 Dizziness and giddiness (principal); R94.6 Abnormal results of thyroid function studies; R51.9 Headache, unspecified
CPT/HCPCS: 36415; 71046-TC-FY; 80053; 83735; 84443; 85025; 87086; 87804; 93005; 93010; 99285-25; C9803; U0003; U0005

== ENCOUNTER 2020-12-30 18:14 | Observation (INO) | payer OTHER ==
[2020-12-30 18:23] VITALS: BMI 27.4
[2020-12-30] MEDS ORDERED: FAMOTIDINE 20 MG/50 ML IVPB 20 MG/50 ML MG IVPB ONE ×2 (20:55→21:30)
[2020-12-30] MEDS ORDERED: ACETAMINOPHEN 1000 MG/100 ML VIAL (NON FORMULARY) IVPB ONE (20:55)
[2020-12-30] MEDS ORDERED: MAG HYDROX/AL HYDROX/SIMETH 30 ML UNIT-DOSE CUP PO ONE (20:55)
[2020-12-30] MEDS ORDERED: ACETAMINOPHEN INJECTION 100 ML IVPB ONE (21:29)
[2020-12-30] MEDS ORDERED: MAG HYDROX/AL HYDROX/SIMETH 30 ML UNIT-DOSE CUP ONE (21:30)
[2020-12-30 21:57] LABS: BASO % 0.5 % (0-2.0); EOS % 2.1 % (0-4.5); HEMATOCRIT 36.9 % (32.4-45.2); HEMOGLOBIN 12.5 GM/dL (10.7-15.3); LYMPH % 45.2 % (8-40); MCH 29.1 pg (25.7-33.7); MCHC 33.8 g/dl (32.0-36.0); MEAN CELL VOLUME 86.3 fl (80-96); MEAN PLT VOLUME 7.2 fl (7.5-11.1); MONO % 7.4 % (3.8-10.2); NEUT % 44.8 % (42.8-82.8); PLATELET COUNT 351 10^3/uL (134-434); RBC 4.28 M/mm3 (3.60-5.2); RDW 14.3 % (11.6-15.6); WHITE BLOOD COUNT 9.1 K/mm3 (4.0-10.0)
[2020-12-30 22:15] LABS: CHLORIDE 108 mmol/L (98-107); SODIUM 140 mmol/L (136-145)
[2020-12-30 22:18] LABS: ALBUMIN 3.6 g/dl (3.4-5.0); ANION GAP 7 MMOL/L (8-16); BLOOD UREA NITROGEN 15.8 mg/dL (7-18); CALCIUM 9.6 mg/dL (8.5-10.1); CO2 25 mmol/L (21-32); GLUCOSE,RANDOM 90 mg/dL (74-106); LIPASE 241 U/L (73-393)
[2020-12-30 22:19] LABS: MAGNESIUM 1.8 mg/dL (1.8-2.4)
[2020-12-30 22:21] LABS: CREATININE 0.7 mg/dL (0.55-1.3); PHOSPHOROUS 4.2 mg/dL (2.5-4.9); SGOT/AST 8 U/L (15-37)
[2020-12-30 22:23] LABS: BILIRUBIN,TOTAL 0.2 mg/dL (0.2-1); TOT PROT 7.3 g/dl (6.4-8.2)
[2020-12-30 22:24] LABS: ALK PHOS 82 U/L (45-117)
[2020-12-30 22:30] LABS: SGPT/ALT 22 U/L (13-61)
[2020-12-30] MEDS ORDERED: methylPREDNISolone 8 MG TABLET PO ONE (23:04)
[2020-12-30] MEDS ORDERED: predniSONE 20 MG TABLET (UD) PO ONE (23:45)
[2020-12-30] MEDS ORDERED: predniSONE 20 MG TABLET (UD) ONE (23:56)
[2020-12-31] MEDS ORDERED: ACETAMINOPHEN 1000 MG/100 ML VIAL (NON FORMULARY) IVPB ONE (04:10)
[2020-12-31] MEDS ORDERED: ACETAMINOPHEN INJECTION 100 ML IVPB ONE (04:29)
[2020-12-31] MEDS ORDERED: ACETAMINOPHEN 325 MG TABLET (FP) PO PRN (05:02)
[2020-12-31] MEDS ORDERED: FAMOTIDINE 20 MG TABLET PO PRN (06:07)
[2020-12-31] MEDS ORDERED: INSULIN SLIDING SCALE (NOVOLOG) 1 VIAL SQ SCH (07:00)
[2020-12-31 07:03] VITALS: TEMP 98.4
[2020-12-31 08:02] LABS: HEMATOCRIT 38.4 % (32.4-45.2); HEMOGLOBIN 12.9 GM/dL (10.7-15.3); MCH 29.1 pg (25.7-33.7); MCHC 33.5 g/dl (32.0-36.0); MEAN CELL VOLUME 86.6 fl (80-96); MEAN PLT VOLUME 8.1 fl (7.5-11.1); PLATELET COUNT 374 10^3/uL (134-434); RBC 4.43 M/mm3 (3.60-5.2); RDW 13.8 % (11.6-15.6); WHITE BLOOD COUNT 5.9 K/mm3 (4.0-10.0)
[2020-12-31 08:16] LABS: CHLORIDE 107 mmol/L (98-107); SODIUM 137 mmol/L (136-145)
[2020-12-31 08:17] LABS: CALCIUM 9.3 mg/dL (8.5-10.1)
[2020-12-31 08:18] LABS: ANION GAP 5 MMOL/L (8-16); CO2 25 mmol/L (21-32); GLUCOSE,RANDOM 177 mg/dL (74-106)
[2020-12-31 08:21] LABS: CREATININE 0.7 mg/dL (0.55-1.3)
[2020-12-31 08:44] LABS: BLOOD UREA NITROGEN 14.3 mg/dL (7-18)
[2020-12-31] MEDS ORDERED: predniSONE 20 MG TABLET (UD) PO ONE (08:45)
[2020-12-31] MEDS ORDERED: predniSONE 20 MG TABLET (UD) ONE (09:04)
[2020-12-31] MEDS ORDERED: FAMOTIDINE 20 MG TABLET PO SCH (10:00)
[2020-12-31] MEDS ORDERED: LOSARTAN POTASSIUM 50 MG TABLET PO SCH (10:00)
[2020-12-31] MEDS ORDERED: FAMOTIDINE 20 MG TABLET ONE (10:06)
[2020-12-31] MEDS ORDERED: LOSARTAN POTASSIUM 50 MG TABLET ONE (10:06)
[2020-12-31 10:07] VITALS: BP 139/94; PULSE 108
[2020-12-31] MEDS ORDERED: ATORVASTATIN CA 10 MG TABLET (FP) PO SCH (22:00)
[2020-12-31] MEDS ORDERED: LOSARTAN POTASSIUM 25 MG TABLET PO SCH (22:00)
== END 2020-12-31 11:15 | disposition home or self-care (01) ==
LOC: JER 18:14 → JERBED 23:15
PROVIDERS: ADMIT Internal Medicine; ATTEND Nurse Practitioner Acute Care
PROC: 3E033NZ Introduction of Analgesics, Hypnotics, Sedatives into Peripheral Vein, Percutaneous Approach (ICD-10-PCS; principal; 2020-12-30)
PROC: 3E033GC Introduction of Other Therapeutic Substance into Peripheral Vein, Percutaneous Approach (ICD-10-PCS; 2020-12-30)
DX: G89.18 Other acute postprocedural pain (principal); R07.89 Other chest pain; I10 Essential (primary) hypertension; E78.5 Hyperlipidemia, unspecified; E11.9 Type 2 diabetes mellitus without complications; K57.90 Diverticulosis of intestine, part unspecified, without perforation or abscess without bleeding; Z85.3 Personal history of malignant neoplasm of breast; K29.70 Gastritis, unspecified, without bleeding
CPT/HCPCS: 36415; 71046-TC-FY; 71250-TC; 74176-TC; 80048; 80053; 82550; 82962; 83605; 83690; 83735; 84100; 84484; 85025; 85027; 85379; 93005; 93010; 96365; 96366; 96367; 99285-25; C9803; G0378; J0131; U0003; U0005

== ENCOUNTER 2021-10-15 16:30 | Emergency (ER) | payer SELFPAY ==
[2021-10-15 16:54] VITALS: BP 134/93; PULSE 103; TEMP 98.7; BMI 27.4
[2021-10-15 17:49] LABS: HEMATOCRIT 40.7 % (32.4-45.2); HEMOGLOBIN 14.5 G/dL (10.7-15.3); MCH 30.9 pg (25.7-33.7); MCHC 35.7 g/dl (32.0-36.0); MEAN CELL VOLUME 86.8 fl (80-96); MEAN PLT VOLUME 8.2 fl (7.5-11.1); PLATELET COUNT 243.9 10^3/uL (134-434); RBC 4.69 10^6/uL (3.60-5.2); RDW 15.3 % (11.6-15.6); WHITE BLOOD COUNT 7.2 10^3/uL (4.0-10.8)
[2021-10-15 18:08] LABS: ALBUMIN 4.1 g/dl (3.4-5.0); BILIRUBIN,TOTAL 0.8 mg/dl (0.2-1); CALCIUM 9.2 mg/dl (8.5-10); CREATININE 0.6 mg/dl (0.55-1.3); TOT PROT 7.5 g/dl (6.4-8.2)
[2021-10-15 18:10] LABS: PLATELET ESTIMATE ADEQUATE
[2021-10-15 19:25] LABS: EPITHELIAL CELLS RARE /hpf
== END 2021-10-15 19:44 | disposition home or self-care (01) ==
LOC: FER 16:30
DX: E11.9 Type 2 diabetes mellitus without complications (principal)
CPT/HCPCS: 0241U-QW; 36415; 80053; 81003; 81015; 85027; 87086; 99283-25

== ENCOUNTER 2024-01-26 12:50 | Emergency (ER) | payer OTHER ==
[2024-01-26 13:23] VITALS: BP 145/99; PULSE 99; RESP 19; TEMP 98.4; BMI 27.4
[2024-01-26 14:27] LABS: INR 0.95 (0.83-1.09); PROTHROMBIN TIME (PATIENT) 10.9 SEC (9.7-13.0)
[2024-01-26 14:29] LABS: ACTIVATED PTT 28.3 SECONDS (25.2-36.5)
[2024-01-26 14:38] LABS: ALBUMIN 4.4 g/dl (3.4-5.0); BILIRUBIN,TOTAL 0.4 mg/dl (0.2-1); CALCIUM 10.1 mg/dl (8.5-10.1); CREATININE 0.8 mg/dl (0.6-1.3); POTASSIUM 4.3 mmol/L (3.5-5.1); TOT PROT 7.3 g/dl (6.4-8.2)
[2024-01-26 14:54] LABS: HEMATOCRIT 43.1 % (32.4-45.2); HEMOGLOBIN 13.5 G/dL (10.7-15.3); MCH 28.4 pg (25.7-33.7); MCHC 31.2 g/dl (32.0-36.0); MEAN CELL VOLUME 90.9 fl (80-96); MEAN PLT VOLUME 8.4 fl (7.5-11.1); RBC 4.74 10^6/uL (3.60-5.2); RDW 16.6 % (11.6-15.6); WHITE BLOOD COUNT 8.7 10^3/uL (4.0-10.8)
[2024-01-26 14:55] LABS: PLATELET ESTIMATE ADEQUATE
== END 2024-01-26 16:03 | disposition home or self-care (01) ==
LOC: FER 12:50
DX: R10.32 Left lower quadrant pain (principal); R19.5 Other fecal abnormalities
CPT/HCPCS: 36415; 74176-TC; 80053; 81003; 81015; 82272; 83605; 83690; 85027; 85610; 85730; 87086; 99284-25

== ENCOUNTER 2024-03-09 04:39 | Day surgery (SDC) | payer OTHER ==
[2024-03-06 15:46] VITALS: BMI 27.1
[2024-03-09 12:07] VITALS: TEMP 97.6
[2024-03-09 12:18] VITALS: BP 109/65; PULSE 84; RESP 16
== END 2024-03-09 12:25 | disposition home or self-care (01) ==
LOC: JASU-ENDO 04:39
PROVIDERS: ATTEND Internal Medicine Gastroenterology
PROC: 0DBL8ZX Excision of Transverse Colon, Via Natural or Artificial Opening Endoscopic, Diagnostic (ICD-10-PCS; 2024-03-09)
PROC: 0DBN8ZX Excision of Sigmoid Colon, Via Natural or Artificial Opening Endoscopic, Diagnostic (ICD-10-PCS; principal; 2024-03-09 10:30)
DX: Z12.11 Encounter for screening for malignant neoplasm of colon (principal); D12.5 Benign neoplasm of sigmoid colon; K57.30 Diverticulosis of large intestine without perforation or abscess without bleeding; K64.8 Other hemorrhoids
CPT/HCPCS: 82962; 88305-TC